=== PATIENT | male | born 1965 | race Caucasian/White ===

== ENCOUNTER 2018-04-28 10:42 | Emergency (ER) | payer BC, OTHER ==
[2018-04-28 10:51] VITALS: BP 134/80; PULSE 89; TEMP 97.8; BMI 34.2
--- NOTE | 2018-04-28 11:41 | PDOC ---
History of Present Illness - General Chief Complaint: Pain Stated Complaint: ABD, GENITAL PAIN Time Seen by Provider: 04/28/18 11:17 History Source: Patient, Unavil. due to pt. cond. - History of Present Illness Initial Comments: 04/28/18 11:37 52 yo male h/o DM here with c/o 3 - 4 days of dysuria, and suprapubic and testicular pain. pt states he has lower abd pain, radiating into testicle. urinary frequency. has had balanitis in past, and is uncircumcised. no f/c does report nausea, no vomiting. no change to stool. no h/o renal colic. no mod factors. has been taking his janumet 11/999 twice daily. Past History - Past Medical History Allergies/Adverse Reactions: Allergies Allergy/AdvReac Type Severity Reaction Status Date / Time No Known Allergies Allergy Verified 04/28/18 10:43 Home Medications: Ambulatory Orders Glipizide 10 mg PO BID 04/28/18 Metformin HCl [Glucophage] 1,000 mg PO BID 04/28/18 Sulfamethoxazole/Trimethoprim [Bactrim Ds -] 1 tab PO BID #14 tablet 04/28/18 COPD: No Diabetes: Yes - Suicide/Smoking/Psychosocial Hx Smoking History: Never smoked Have you smoked in the past 12 months: No Information on smoking cessation initiated: No Hx Alcohol Use: No *Physical Exam - Vital Signs Last Vital Signs Temp Pulse Resp BP Pulse Ox 97.8 F 89 18 134/80 100 04/28/18 10:42 04/28/18 10:42 04/28/18 10:42 04/28/18 10:42 04/28/18 10:42 - Physical Exam Comments: 04/28/18 11:39 awake alert lungs clear bilaterally heart rrr nomrg abd soft mild llq ttp. no palp hernia, no reboung no guarding. mild left testicular ttp. no palp mass. pt uncircumcised. no redness, able to retract foreskin without diffulty. no palp hernia. ext wwp skin warm and dry. no appreciated erythema. Moderate Sedation - Procedure Monitoring Vital Signs: Procedure Monitoring Vital Signs Temperature 97.8 F 04/28/18 10:42 Pulse Rate 89 04/28/18 10:42 Respiratory Rate 18 04/28/18 10:42 Blood Pressure 134/80 04/28/18 10:42 O2 Sat by Pulse Oximetry (%) 100 04/28/18 10:42 ED Treatment Course - LABORATORY CBC & Chemistry Diagram: 04/28/18 11:40 04/28/18 11:40 - RADIOLOGY Radiology Studies Ordered: Category Date Time Status SCROTUM AND CONTENTS US [US] Stat Ultrasound 04/28/18 11:36 Ordered Medical Decision Making - Medical Decision Making 04/28/18 11:40 52 yo DM male here with left lower abd pain testicular pain. differential ut, pyelo, orchitis, epididymitis, diverticulitis, renal colic, plan us testicle. possible ct if nondiagnositc. ua labs. 04/28/18 16:13 pt with small bilat hydroceles. no noted cellulitis of scrotum on exam. no skin erythema, or redness. urine with small white cells, and small red cells. will treat with bactrim. d/w dr Staton urologyist regarding concerns for bladder thickening and hydrouter on the left, will see pt this week in office. given number for followup. dc on bactrim urine cultures pending. normal wbc, no fever. *DC/Admit/Observation/Transfer Diagnosis at time of Disposition: Acute cystitis with hematuria, Testicular pain, left - Discharge Dispostion Disposition: HOME Condition at time of disposition: Stable Decision to Admit order: No - Prescriptions Prescriptions: Sulfamethoxazole/Trimethoprim [Bactrim Ds -] 1 tab PO BID #14 tablet - Referrals Referrals: Marito Holbrook MD [Staff Physician] - Jacob Cm MD [Staff Physician] - Rd Arriaga MD [Primary Care Provider] - - Patient Instructions Printed Discharge Instructions: Urinary Tract Infection, DI for Hematuria Additional Instructions: you should take bactrim twice daily x 7 days. you should also follow up with Dr Staton, urologist as you have blood in your urine, and may need a cystoscopy. return for worsening pain, vomiting or any concerns. follow up with your primary doctor. if you do not have one, you can see Dr Holbrook, call to schedule at the internal medicine clinic. - Post Discharge Activity
[2018-04-28 12:02] LABS: BASO % 0.2 % (0-2.0); EOS % 1.2 % (0-4.5); HEMATOCRIT 35.1 % (35.4-49); HEMOGLOBIN 11.3 GM/dl (11.7-16.9); LYMPH % 14.5 % (8-40); MCH 26.1 pg (25.7-33.7); MEAN CELL VOLUME 81.6 fl (80-96); MEAN PLT VOLUME 6.8 fl (7.5-11.1); MONO % 6.7 % (3.8-10.2); NEUT % 77.4 % (42.8-82.8); PLATELET COUNT 459 K/MM3 (134-434); RDW 14.4 % (11.9-15.9); WHITE BLOOD COUNT 9.2 K/mm3 (4.0-10.8)
[2018-04-28 12:10] LABS: PH,URINE 5.5 (4.5-8); URINE APPEARANCE CLEAR; URINE BILIRUBIN NEGATIVE (NEGATIVE); URINE COLOR YELLOW; URINE GLUCOSE (UA) NEGATIVE (NEGATIVE); URINE KETONE NEGATIVE (NEGATIVE); URINE LEUK ESTERASE NEGATIVE (NEGATIVE); URINE NITRITE NEGATIVE (NEGATIVE); URINE PROTEIN 2+ (NEGATIVE); URINE UROBILINOGEN 0.2 (0.2-1.0)
[2018-04-28 12:15] LABS: ALBUMIN 2.7 g/dl (3.4-5.0); ALK PHOS 599 U/L (45-117); ANION GAP 7 MMOL/L (8-16); BILIRUBIN,TOTAL 0.3 mg/dl (0.2-1); BLOOD UREA NITROGEN 21 mg/dl (7-18); CALCIUM 8.2 mg/dl (8.5-10); CHLORIDE 100 mmol/L (98-107); CO2 25 mmol/L (21-32); CREATININE 1.1 mg/dl (0.55-1.3); GLUCOSE,RANDOM 154 mg/dl (74-106); POTASSIUM 4.3 mmol/L (3.5-5.1); SGOT/AST 36 U/L (15-37); SGPT/ALT 20 U/L (13-61); SODIUM 132 mmol/L (136-145); TOT PROT 6.3 g/dl (6.4-8.2)
[2018-04-28 12:36] LABS: EPI CELLS FEW /HPF; URINE MUCUS 1+
[2018-04-28] MEDS ORDERED: IBUPROFEN 600 MG TABLET (FP) PO ONE ×2 (16:15→16:17)
[2018-04-28] MEDS ORDERED: SULFAMETHOXAZOLE/TRIMETHOPRIM 800MG/160MG D.S. TABLET PO ONE (16:15)
[2018-04-28] MEDS ORDERED: SULFAMETHOXAZOLE/TRIMETHOPRIM 800MG/160MG D.S. TABLET ONE (16:17)
== END 2018-04-28 16:30 | disposition home or self-care (01) ==
LOC: FER 10:42
DX: N30.01 Acute cystitis with hematuria (principal); N50.812 Left testicular pain
CPT/HCPCS: 36415; 74176-TC; 76870-TC; 80053; 81003; 81015; 85025; 87086; 99284-25